=== PATIENT | male | born 1955 | race American Indian/Alaskan Native ===

== ENCOUNTER 2016-08-18 04:54 | Emergency (ER) | payer SELFPAY ==
[2016-08-18] MEDS ORDERED: NACL 0.9% 1000 ML 1,000 ML IV ONE (14:31)
[2016-08-18] MEDS ORDERED: MORPHINE IV ONE (14:31)
[2016-08-18] MEDS ORDERED: TORADOL IV ONE (14:31)
--- NOTE | 2016-08-18 14:31 | Emergency Department Report ---
ED General Adult HPI - General Chief complaint: High BP Stated complaint: BODY PAIN Time Seen by Provider: 08/18/16 14:24 Source: patient Mode of arrival: Ambulatory Limitations: No Limitations - History of Present Illness -: Gradual, year(s) Time: 05:00 Location: left, upper extremity, lower extremity Radiation: non-radiation Severity scale (0 -10): 8 Quality: aching, crushing, sharp Consistency: constant Improves with: cold therapy, medication (but unable to ) Worsens with: movement Associated Symptoms: denies: confusion, chest pain, cough, diaphoresis, headaches, loss of appetite, malaise, nausea/vomiting, shortness of breath, syncope Treatments Prior to Arrival: NSAID - Related Data Previous Rx's Medication Instructions Recorded Last Taken Type Amlodipine Besylate [Norvasc] 2.5 mg PO DAILY #90 tab 08/18/16 Unknown Rx Diclofenac Potassium 50 mg PO BID #12 tablet 08/18/16 Unknown Rx HYDROcodone/APAP 5-325 [[place] 1 each PO Q6HR PRN #14 tablet 08/18/16 Unknown Rx 5-325 mg TAB] predniSONE [Deltasone] 50 mg PO QDAY #5 tab 08/18/16 Unknown Rx Allergies Allergy/AdvReac Type Severity Reaction Status Date / Time No Known Allergies Allergy Unverified 07/22/15 09:50 ED Review of Systems ROS: Stated complaint: BODY PAIN Other details as noted in HPI Comment: All other systems reviewed and negative ED Past Medical Hx - Past Medical History Previous Medical History?: No - Surgical History Past Surgical History?: Yes Additional Surgical History: "pins in both hips" - Social History Smoking Status: Current Every Day Smoker Substance Use Type: None - Medications Home Medications: Home Medications Medication Instructions Recorded Confirmed Last Taken Type Amlodipine Besylate [Norvasc] 2.5 mg PO DAILY #90 tab 08/18/16 Unknown Rx Diclofenac Potassium 50 mg PO BID #12 tablet 08/18/16 Unknown Rx HYDROcodone/APAP 5-325 [[place] 1 each PO Q6HR PRN #14 tablet 08/18/16 Unknown Rx 5-325 mg TAB] predniSONE [Deltasone] 50 mg PO QDAY #5 tab 08/18/16 Unknown Rx ED Physical Exam - General Limitations: No Limitations General appearance: alert, in no apparent distress - Head Head exam: Present: atraumatic, normocephalic - Eye Eye exam: Present: normal appearance - ENT ENT exam: Present: normal exam, normal orophraynx, mucous membranes moist - Neck Neck exam: Present: normal inspection - Respiratory Respiratory exam: Present: normal lung sounds bilaterally. Absent: respiratory distress - Cardiovascular Cardiovascular Exam: Present: regular rate, normal rhythm. Absent: systolic murmur, diastolic murmur, rubs, gallop - GI/Abdominal GI/Abdominal exam: Present: soft, normal bowel sounds - Rectal Rectal exam: Present: deferred - Extremities Exam Extremities exam: Present: normal inspection, full ROM (decrease ROM due to pain ), normal capillary refill, joint swelling. Absent: pedal edema - Back Exam Back exam: Present: normal inspection - Neurological Exam Neurological exam: Present: alert, oriented X3 - Psychiatric Psychiatric exam: Present: normal affect, normal mood - Skin Skin exam: Present: warm, dry, intact, normal color. Absent: rash ED Course Vital Signs 08/18/16 08/18/16 05:12 10:00 Temperature 97.9 F 97.9 F Pulse Rate 67 62 Respiratory 20 20 Rate Blood Pressure 183/101 198/105 O2 Sat by Pulse 99 100 Oximetry ED Medical Decision Making - Medical Decision Making patient with secvere gout arthritis, generalized , out of pain meds , no other symptoms and he descirbes them as his usual gouty pain , better after toradol and morphine , will refill hios meds and dc with proper follow up Critical care attestation.: If time is entered above; I have spent that time in minutes in the direct care of this critically ill patient, excluding procedure time. ED Disposition Clinical Impression: Gout attack Disposition: DISCHARGED TO HOME OR SELFCARE Is pt being admited?: No Does the pt Need Aspirin: No Condition: Good Prescriptions: Amlodipine Besylate [Norvasc] 2.5 mg PO DAILY #90 tab Diclofenac Potassium 50 mg PO BID #12 tablet HYDROcodone/APAP 5-325 [[place] 5-325 mg TAB] 1 each PO Q6HR PRN #14 tablet PRN Reason: Pain predniSONE [Deltasone] 50 mg PO QDAY #5 tab Referrals: PRIMARY CARE, [Primary Care Provider] - 3-5 Days Time of Disposition: 16:01
[2016-08-18 17:42] VITALS: BP 183/100
== END 2016-08-18 17:44 | disposition home or self-care (01) ==
LOC: ED 04:54
DX: M10.9 Gout, unspecified (principal); F17.200 Nicotine dependence, unspecified, uncomplicated
CPT/HCPCS: 96361; 96374; 96375; 99282; J1885; J2270; J2930; J7030

== ENCOUNTER 2016-09-27 04:30 | Emergency (ER) | payer SELFPAY ==
[2016-09-27 05:45] LABS: Basophils % (Auto) 0.8 % (0.0-1.8); Eosinophils % (Auto) 2.9 % (0.0-4.3); Hematocrit 38.4 % (35.5-45.6); Hemoglobin 12.3 gm/dl (11.8-15.2); Mean Corpuscular HGB Conc 32 % (32-34); Mean Corpuscular Hemoglobin 27 pg (28-32); Mean Corpuscular Volume 84 fl (84-94); Platelet Count 192 K/mm3 (140-440); Red Cell Distribution Width 14.3 % (13.2-15.2); White Blood Count 6.7 K/mm3 (4.5-11.0)
[2016-09-27 06:04] LABS: Anion Gap 17 mmol/L; BUN/Creatinine Ratio 6.25; Blood Urea Nitrogen 5 mg/dL (9-20); Calcium 8.6 mg/dL (8.4-10.2); Carbon Dioxide 27 mmol/L (22-30); Chloride 100.3 mmol/L (98-107); Glucose 103 mg/dL (75-100); Potassium 4.3 mmol/L (3.6-5.0); Sodium 140 mmol/L (137-145)
[2016-09-27] MEDS ORDERED: BABY ASPIRIN PO ONE (11:09)
--- NOTE | 2016-09-27 11:13 | Emergency Department Report ---
ED Chest Pain HPI - General Chief Complaint: Chest Pain Stated Complaint: BODY ACHES/CHEST PAIN Time Seen by Provider: 09/27/16 11:04 Source: patient Mode of arrival: Ambulatory Limitations: No Limitations - History of Present Illness Initial Comments: This is a 61-year-old -Citizen Of The [place] male presents the emergency department, after being dropped off by a friend, with complaints of bilateral hip pain, neck pain, neck pain and right-sided chest pain. The patient has a history of arthritis and has been evaluated here before for all of the different body aches but says that the chest pain is new. The chest pain started 2 days ago. He denies any shortness of breath, nausea, vomiting or diaphoresis. He tried a [place] for his symptoms without much relief. He does not currently have a primary care doctor. He is a tobacco smoker but denies any illicit drug use or abuse. No recent travel or sick contacts at home. - Related Data Previous Rx's Medication Instructions Recorded Last Taken Type Amlodipine Besylate [Norvasc] 2.5 mg PO DAILY #90 tab 08/18/16 Unknown Rx Diclofenac Potassium 50 mg PO BID #12 tablet 08/18/16 Unknown Rx HYDROcodone/APAP 5-325 [[place] 1 each PO Q6HR PRN #14 tablet 08/18/16 Unknown Rx 5-325 mg TAB] predniSONE [Deltasone] 50 mg PO QDAY #5 tab 08/18/16 Unknown Rx Allergies Allergy/AdvReac Type Severity Reaction Status Date / Time No Known Allergies Allergy Unverified 07/22/15 09:50 Heart Score - HEART Score History: Slightly suspicious EKG: Normal Age: 45-65 Risk factors: 1-2 risk factors Troponin: < normal limit HEART Score: 2 - Critical Actions Critical Actions: 0-3 pts:0.9-1.7%risk of adverse cardiac event.Candidate for discharge ED Review of Systems ROS: Stated complaint: BODY ACHES/CHEST PAIN Other details as noted in HPI Comment: All other systems reviewed and negative Constitutional: denies: chills, fever Eyes: denies: eye pain, eye discharge, vision change ENT: denies: ear pain, throat pain Respiratory: denies: cough, shortness of breath, wheezing Cardiovascular: chest pain. denies: palpitations Gastrointestinal: denies: abdominal pain, nausea, diarrhea Genitourinary: denies: urgency, dysuria Musculoskeletal: back pain, arthralgia, myalgia Skin: denies: rash, lesions Neurological: denies: headache, weakness, paresthesias ED Past Medical Hx - Past Medical History Previous Medical History?: No Hx Arthritis: Yes Additional medical history: GOUT - Surgical History Past Surgical History?: Yes Additional Surgical History: "pins in both hips" - Social History Smoking Status: Current Every Day Smoker Substance Use Type: None - Medications Home Medications: Home Medications Medication Instructions Recorded Confirmed Last Taken Type Amlodipine Besylate [Norvasc] 2.5 mg PO DAILY #90 tab 08/18/16 Unknown Rx Diclofenac Potassium 50 mg PO BID #12 tablet 08/18/16 Unknown Rx HYDROcodone/APAP 5-325 [[place] 1 each PO Q6HR PRN #14 tablet 08/18/16 Unknown Rx 5-325 mg TAB] predniSONE [Deltasone] 50 mg PO QDAY #5 tab 08/18/16 Unknown Rx ED Physical Exam - General Limitations: No Limitations - Other Other exam information: GENERAL: The patient is well-developed well-nourished. HEENT: Normocephalic. Atraumatic. Extraocular motions are intact. Patient has moist mucous membranes. Pupils equal reactive to light bilaterally. NECK: Supple. Trachea is midline. CHEST/LUNGS: Clear to auscultation. There is no respiratory distress noted. There is some reproducible tenderness to palpation of the right side of the chest. HEART/CARDIOVASCULAR: Regular. There is no tachycardia. There is no gallop rub or murmur. ABDOMEN: Abdomen is soft, nontender. Patient has normal bowel sounds. There is no abdominal distention. Obese habitus. SKIN: Skin is warm and dry. NEURO: The patient is awake, alert, and oriented. The patient is cooperative. The patient has no focal neurologic deficits. The patient has normal speech. MUSCULOSKELETAL: Bilateral hip pain is not reproducible to palpation and there is no obvious deformity. There is no evidence of acute injury. BACK: No midline thoracic or lumbar tenderness to palpation or deformity. ED Course Vital Signs 09/27/16 09/27/16 09/27/16 05:16 12:16 12:55 Temperature 98.7 F 98.7 F Pulse Rate 73 70 63 Respiratory 20 18 Rate Blood Pressure 171/88 Blood Pressure 159/87 [Right] O2 Sat by Pulse 100 99 Oximetry AUBREY score - Aubrey Score Age > 65: (0) No Aspirin use within the Past 7 Days: (0) No 3 or more CAD Risk Factors: (0) No 2 or more Angina events in past 24 hrs: (1) Yes Known CAD with more than 50% Stenosis: (0) No Elevated Cardiac Markers: (0) No ST Deviation Greater than 0.5mm: (0) No AUBREY Score: 1 ED Medical Decision Making - Lab Data Result diagrams: 09/27/16 05:27 09/27/16 05:27 - EKG Data -: EKG Interpreted by Me EKG shows normal: sinus rhythm, axis, intervals, QRS complexes, ST-T waves ( flattened T waves) Rate: normal - EKG Data When compared to previous EKG there are: previous EKG unavailable Interpretation: nonspecific ST-T wave rick - Radiology Data Radiology results: report reviewed, image reviewed interpreted by me: Chest x-ray did not show any acute process. Heart is normal shape and size. No effusions. No pneumothorax. No signs of pneumonia seen. CT angiography of the chest does not show any pulmonary embolism, dissection or any acute process. - Medical Decision Making 61-year-old male presents to the emergency department with chronic body aches including hips, back but now with a 2 day history of some right-sided chest discomfort. EKG does not show any signs of ST elevation [place], ischemia or dysrhythmia. The labs so far include a negative troponin, low BNP, normal electrolytes, no leukocytosis but there is a slightly elevated and equivocal d- dimer. Chest x-ray does not show any acute process. A CT angiography of the chest was done that does not show any PE or dissection or any acute process. However given the patient's age, risk factor of hypertension, and the fact that he has not had a full cardiac workup including a stress test, the plan was going to be for admission for either cardio consultation or stress test. However the patient says he is feeling improved and does not want to stay. I discussed with him the concerns for ruling out coronary artery disease as the source of his chest pain and that leaving could cause worsening pain, disability , [place] or . Patient still would like to leave but says that he will come back if he starts having any worsening of his symptoms or any acute distress. He will otherwise be given a referral for cardiology so that he can seek outpatient evaluation and possible stress test. - Differential Diagnosis [place], PE, costochondritis, pneumonia Critical Care Time: No Critical care attestation.: If time is entered above; I have spent that time in minutes in the direct care of this critically ill patient, excluding procedure time. ED Disposition Clinical Impression: Bilateral hip pain, Arthritis Chest pain Qualifiers: Chest pain type: unspecified Qualified Code(s): R07.9 - Chest pain, unspecified Hypertension Qualifiers: Hypertension type: essential hypertension Qualified Code(s): I10 - Essential ( primary) hypertension Disposition: LEFT AGAINST MED ADVICE Is pt being admited?: Yes Condition: Stable Instructions: Chest Pain (ED), Hypertension (ED), Arthralgia (ED) Additional Instructions: Please return to the emergency department with any worsening of your symptoms, any acute distress, or if you change your mind about admission and further workup. Otherwise given a referral for a local gym manager, Dr. Tripp, to call for a outpatient evaluation and possible stress test. Referrals: PRIMARY MD SIMON [Primary Care Provider] - COURTNEY BARTH MD [Staff Physician] - JUAQUIN Forms: AMA Form Time of Disposition: 14:11
--- NOTE | 2016-09-27 11:33 | XRay Report ---
ROUTINE CHEST, TWO VIEWS: HISTORY: chest pain. The trachea, heart, mediastinal contour, lung connelly and bony thorax are unremarkable. IMPRESSION: Unremarkable chest x-ray.
[2016-09-27 12:26] VITALS: BP 159/87
[2016-09-27] MEDS ORDERED: MORPHINE IV ONE (13:05)
--- NOTE | 2016-09-27 14:04 | Cat Scan Report ---
CTA CHEST: History: Chest pain. Technique: Helical CT following IV contrast. Pulmonary embolus protocol. Sagittal and coronal reformatted images. Rotational MIP images. Findings: Contrast bolus is satisfactory. No pulmonary embolus is identified. The thyroid gland, tracheobronchial tree, esophagus, heart, pericardium, mediastinal vessels, lung connelly and bony thorax are unremarkable. Impression: No evidence for pulmonary embolus. Unremarkable CT chest with contrast.
== END 2016-09-27 14:23 | disposition left against medical advice (07) ==
LOC: ED 04:30
DX: M25.552 Pain in left hip (principal); M25.551 Pain in right hip; R07.89 Other chest pain; M19.90 Unspecified osteoarthritis, unspecified site; I10 Essential (primary) hypertension; F17.210 Nicotine dependence, cigarettes, uncomplicated
CPT/HCPCS: 36415; 71020; 71275; 80048; 83880; 84484; 85025; 85379; 93005; 93010; 96374; 99285; J2270; Q9967

== ENCOUNTER 2017-01-27 00:59 | Emergency (ER) | payer SELFPAY ==
[2017-01-27] MEDS ORDERED: TYLENOL ONE (02:11)
[2017-01-27] MEDS ORDERED: NORVASC ONE (02:11)
[2017-01-27] MEDS ORDERED: NORVASC PO ONE (02:16)
[2017-01-27] MEDS ORDERED: TYLENOL PO ONE (02:16)
[2017-01-27 02:30] VITALS: BP 206/115
== END 2017-01-27 08:00 | disposition left against medical advice (07) ==
LOC: ED 00:59
DX: M54.2 Cervicalgia (principal); M54.89 Other dorsalgia; Z53.21 Procedure and treatment not carried out due to patient leaving prior to being seen by health care provider

== ENCOUNTER 2018-07-12 05:40 | Emergency (ER) | payer OTHER, MEDICARE ==
[2018-07-12 05:49] VITALS: BP 140/80
== END 2018-07-12 07:00 | disposition left against medical advice (07) ==
LOC: ED 05:40
DX: H57.89 Other specified disorders of eye and adnexa (principal); Z53.21 Procedure and treatment not carried out due to patient leaving prior to being seen by health care provider

== ENCOUNTER 2018-07-13 00:42 | Emergency (ER) | payer OTHER, MEDICARE ==
[2018-07-13 01:08] VITALS: BP 139/74
--- NOTE | 2018-07-13 03:38 | Emergency Department Report ---
ED ENT HPI - General Chief complaint: Earache Stated complaint: SCRATCHING IN RIGHT EAR Source: patient Mode of arrival: Ambulatory Limitations: No Limitations - History of Present Illness Initial comments: This is a 62-year-old -[place] male who presents to the emergency room with the scratching sound on the right ear for 4 days. Patient states he think something possibly may be in there. She apply sweet roll with no improvement of symptoms. Patient denies pain, change in hearing, drainage. MD complaint: ear pain (right) Onset/Timin -: days(s) Location: R ear Severity: mild Severity scale (0 -10): 0 Quality: constant Consistency: constant Improves with: none Worsens with: none Associated Symptoms: tinnitus. denies: fever, cough, gum swelling, toothache, pain with swallowing, sore throat, hearing loss, discharge from ear, rhinorrhea - Related Data Previous Rx's Medication Instructions Recorded Last Taken Type Amlodipine Besylate [Norvasc] 2.5 mg PO DAILY #90 tab 08/18/16 Unknown Rx Diclofenac Potassium 50 mg PO BID #12 tablet 08/18/16 Unknown Rx HYDROcodone/APAP 5-325 [[place] 1 each PO Q6HR PRN #14 tablet 08/18/16 Unknown Rx 5-325 mg TAB] predniSONE [Deltasone] 50 mg PO QDAY #5 tab 08/18/16 Unknown Rx Ciprofloxacin/Hydrocortisone 10 ml OT BID #1 drops.susp 07/13/18 Unknown Rx [Cipro Hc Otic Suspension] Allergies Allergy/AdvReac Type Severity Reaction Status Date / Time No Known Allergies Allergy Verified 07/12/18 05:49 ED Dental HPI - General Chief complaint: Earache Stated complaint: SCRATCHING IN RIGHT EAR Source: patient Mode of arrival: Ambulatory Limitations: No Limitations - Related Data Previous Rx's Medication Instructions Recorded Last Taken Type Amlodipine Besylate [Norvasc] 2.5 mg PO DAILY #90 tab 08/18/16 Unknown Rx Diclofenac Potassium 50 mg PO BID #12 tablet 08/18/16 Unknown Rx HYDROcodone/APAP 5-325 [[place] 1 each PO Q6HR PRN #14 tablet 08/18/16 Unknown Rx 5-325 mg TAB] predniSONE [Deltasone] 50 mg PO QDAY #5 tab 08/18/16 Unknown Rx Ciprofloxacin/Hydrocortisone 10 ml OT BID #1 drops.susp 07/13/18 Unknown Rx [Cipro Hc Otic Suspension] Allergies Allergy/AdvReac Type Severity Reaction Status Date / Time No Known Allergies Allergy Verified 07/12/18 05:49 ED Review of Systems ROS: Stated complaint: SCRATCHING IN RIGHT EAR Other details as noted in HPI Constitutional: denies: chills, fever ENT: other (scratching sound on right ear). denies: ear pain, throat pain Respiratory: denies: cough, shortness of breath, wheezing Cardiovascular: denies: chest pain, palpitations Gastrointestinal: denies: abdominal pain, nausea, diarrhea Neurological: denies: headache, weakness, paresthesias Psychiatric: denies: anxiety, depression ED Past Medical Hx - Past Medical History Previous Medical History?: Yes Hx Hypertension: Yes Hx Arthritis: Yes Additional medical history: GOUT - Surgical History Past Surgical History?: Yes Additional Surgical History: "pins in both hips" - Social History Smoking Status: Current Every Day Smoker Substance Use Type: Alcohol - Medications Home Medications: Home Medications Medication Instructions Recorded Confirmed Last Taken Type Amlodipine Besylate [Norvasc] 2.5 mg PO DAILY #90 tab 08/18/16 Unknown Rx Diclofenac Potassium 50 mg PO BID #12 tablet 08/18/16 Unknown Rx HYDROcodone/APAP 5-325 [[place] 1 each PO Q6HR PRN #14 tablet 08/18/16 Unknown Rx 5-325 mg TAB] predniSONE [Deltasone] 50 mg PO QDAY #5 tab 08/18/16 Unknown Rx Ciprofloxacin/Hydrocortisone 10 ml OT BID #1 drops.susp 07/13/18 Unknown Rx [Cipro Hc Otic Suspension] ED Physical Exam - General Limitations: No Limitations General appearance: alert, in no apparent distress, obese - ENT ENT exam: Present: normal orophraynx, mucous membranes moist, TM's normal bilaterally. Absent: normal external ear exam (erythematous right ear canal) - Neck Neck exam: Present: normal inspection - Respiratory Respiratory exam: Present: normal lung sounds bilaterally. Absent: respiratory distress - Cardiovascular Cardiovascular Exam: Present: regular rate, normal rhythm. Absent: systolic murmur, diastolic murmur, rubs, gallop - GI/Abdominal GI/Abdominal exam: Present: soft, normal bowel sounds - Neurological Exam Neurological exam: Present: alert, oriented X3 - Psychiatric Psychiatric exam: Present: normal affect, normal mood - Skin Skin exam: Present: warm, dry, intact, normal color. Absent: rash ED Course Vital Signs 07/13/18 01:05 Temperature 98.5 F Pulse Rate 86 Respiratory 18 Rate Blood Pressure 139/74 O2 Sat by Pulse 98 Oximetry ED Medical Decision Making - Medical Decision Making Patient is stable and was examined by me. Vitals normal. Physical assessment susceptible of otitis externa of right ear. Start Ciprodex. Referral to ear nose and throat for further evaluation of tinnitus. Discussed plan with patient and he agreed with plan. Discharged home in stable condition. Follow up with PCP in 24-72 hours. Critical care attestation.: If time is entered above; I have spent that time in minutes in the direct care of this critically ill patient, excluding procedure time. ED Disposition Clinical Impression: Acute pain of left ear Otitis externa Qualifiers: Otitis externa type: unspecified type Chronicity: acute Laterality: right Qualified Code(s): H60.501 - Unspecified acute noninfective otitis externa, right ear Tinnitus Qualifiers: Laterality: right Qualified Code(s): H93.11 - Tinnitus, right ear Disposition: - TO HOME OR SELFCARE Is pt being admited?: No Does the pt Need Aspirin: No Condition: Stable Instructions: Otitis Externa (ED) Prescriptions: Ciprofloxacin/Hydrocortisone [Cipro Hc Otic Suspension] 10 ml OT BID #1 drops.susp [facility]] - 3-5 Days [facility] [Provider Group] - 3-5 Days [facility] [Provider Group] - 3-5 Days Time of Disposition: 04:10
== END 2018-07-13 04:15 | disposition home or self-care (01) ==
LOC: ED 00:42
DX: H66.91 Otitis media, unspecified, right ear (principal); H93.11 Tinnitus, right ear; I10 Essential (primary) hypertension; M10.9 Gout, unspecified; F17.200 Nicotine dependence, unspecified, uncomplicated
CPT/HCPCS: 99282